=== PATIENT | female | born 1980 | race Caucasian/White ===

== ENCOUNTER → 2024-01-18 18:39 | Outpatient (REF) | payer OTHER, SELFPAY | LOC: WDC 18:39 | PROVIDERS: ATTENDING PHYSICIAN Physician Assistant | DX: Z12.31 Encounter for screening mammogram for malignant neoplasm of breast (principal); Z12.39 Encounter for other screening for malignant neoplasm of breast | CPT/HCPCS: 77063; 77067 ==

== ENCOUNTER → 2024-05-18 08:02 | Outpatient (REF) | payer OTHER, SELFPAY | LOC: HWRAD 08:02 | PROVIDERS: ATTENDING PHYSICIAN Family Medicine | DX: R22.31 Localized swelling, mass and lump, right upper limb (principal) | CPT/HCPCS: 76882 ==

== ENCOUNTER 2025-05-18 05:54 | Day surgery (SDC) | payer OTHER, SELFPAY ==
[2025-05-18 06:15] VITALS: BP 108/61
[2025-05-18] MEDS: TYLENOL 1000 MG PO (06:30)
[2025-05-18 06:32] VITALS: BMI 27.5
[2025-05-18] MEDS: NORMOSOL-R/PLASMALYTE-A 1000 IV (06:37)
--- NOTE | 2025-05-18 06:38 | HP.FOC2 ---
Focused History & Physical
Chief Complaint
HPI:
Chief Complaint: Right upper extremity subcutaneous lipoma
HPI / Indication for Planned Procedure: Patient is a 44-year-old female with a visible area of swelling along her right upper extremity, anterior biceps region. She has an awareness of the lipoma being present and occasional ache but more active
with the extremity. It has slightly increased in size over the last year, but not abruptly. No associated musculoskeletal or neuropathic symptoms. Ultrasound imaging is confirm the presence of a 5.2 x 1.3 x 4.1 cm subcutaneous lipomatous mass.
Relevant Past Medical History: Other (History of Lyme's disease, GERD)
Relevant Social History: Negative
Relevant Family History: Negative
Relevant Past Surgical History: Positive for ( x 3)
Review of Systems
Review of Pertinent Systems: All Systems Negative
Medication
See Medication form for detailed medications: Yes
Medication List (including Herbals & OTC):
No Meds [No Current Medications] 05/14/25
Medications Reviewed: Yes
Allergies and Reactions
Patient has Allergies: No
Noted Allergies and Reactions:
Allergy/AdvReac Type Severity Reaction Status Date / Time
No Known Allergies Allergy Verified 05/18/25 06:23
Pertinent Physical Exam
All Other Systems: Negative
Head/Neck: Normal
Lungs: Normal
Heart: Normal
Abdomen: Normal
Extremities: Other (In the biceps region proximal to the antecubital fossa there is a visible palpable lipomatous mass approaching 5 cm without overlying skin changes.)
Neurological: Normal
Diagnosis / Assessment
44-year-old female presenting for scheduled operative excision right upper extremity subcutaneous lipomatous mass
Plan / Procedure
Excision right upper extremity subcutaneous lipoma
Anesthesia/Sedation to be done by Anesthesia Provider: Yes
--- NOTE | 2025-05-18 06:40 | W.SUR.PREOP ---
Pre-Operative Surgical Note
-
I have examined this patient prior to the performance of the scheduled procedure.
The patient's condition is unchanged from the time of the current History and
Physical and the patient is able to undergo the scheduled procedure.
--- NOTE | 2025-05-18 07:54 | W.IMMPOSTOP ---
Addendum entered and electronically signed by Ej Lofton MD 05/18/25 08:05:
#[id number]
Original Note:
Surgical Immed Post Op Note
-
Primary Surgeon: Ej Lofton MD
Assisting Surgeon: Taisha Parry PA-c
Pre-op Diagnosis: Right upper extremity subcutaneous lipoma
Post-op Diagnosis: Right upper extremity subcutaneous lipoma, 6 cm
Procedure Performed: Excision right upper extremity subcutaneous lipoma
Anesthesia Type: MAC +1% lidocaine/0.25% Marcaine with epi
Specimen / Cultures: Lipomatous mass
Estimated Blood Loss: 4 mL
Complications: None immediate
Operative Findings: Lobulated but well encapsulated right upper extremity subcutaneous lipoma adherent to fascia overlying right biceps but not intramuscular. Excised in its entirety. Subcutaneous fascia closed with interrupted 3-0 Vicryl.
Running subcuticular 4-0 Monocryl skin closure with Steri-Strips and Teddy wrap dressing.
The assistance of Taisha Parry PA-C was required due to the complexity of the procedure. During the procedure Taisha Parry PA-C assisted with retraction for resection, and closure of the incision site. I was present for the entirety of the
operative procedure.
[2025-05-18 08:04] VITALS: BP 88/58
[2025-05-18 08:05] VITALS: BP 93/51
[2025-05-18 08:15] VITALS: BP 96/60
[2025-05-18 08:30] VITALS: BP 100/68
[2025-05-18 09:13] VITALS: BP 97/65
== END 2025-05-18 09:10 | disposition home or self-care (01) ==
LOC: SDS 05:54
PROVIDERS: ATTENDING PHYSICIAN Surgery
DX: D17.21 Benign lipomatous neoplasm of skin and subcutaneous tissue of right arm (principal)
CPT/HCPCS: 11406; 12032; 88304